=== PATIENT | male | born 1970 ===

== ENCOUNTER 2020-12-03 17:30 | Emergency (ER) | payer SELFPAY ==
[~2020-12-03] VITALS: Ht 185.4 cm; Wt 120.0 kg
[2020-12-03] MEDS ORDERED: AMOX-424 MT (19:16)
[2020-12-03] MEDS ORDERED: IBUP-2030 MT (19:16)
[2020-12-03] MEDS ORDERED: IBUPROFEN 800MG TABLET PO ONE (19:45)
[2020-12-03 20:01] VITALS: BP 125/85
== END 2020-12-03 20:02 | disposition home or self-care (01) ==
LOC: ER 17:30
DX: L02.416 Cutaneous abscess of left lower limb (principal); L02.415 Cutaneous abscess of right lower limb; M79.89 Other specified soft tissue disorders
CPT/HCPCS: 99283